=== PATIENT | male | born 1945 | race Caucasian/White ===

== ENCOUNTER 2017-03-07 09:49 | Emergency (ER) | payer OTHER ==
[2017-03-07 10:15] VITALS: BP 110/63
[2017-03-07] MEDS ORDERED: Sodium Chloride 0.9% 10 ML Syringe FLUSH PRN (10:56)
[2017-03-07] MEDS ORDERED: Sodium Chloride 0.9% 1,000 ML IV ONE (10:57)
--- NOTE | 2017-03-07 11:07 | EDM.PDOC ---
ED HPI GENERAL MEDICAL PROBLEM - General Chief Complaint: Fever Stated Complaint: FEVER Time Seen by Provider: 03/07/17 10:50 Source of Information: Reports: Patient History Limitations: Reports: No Limitations - History of Present Illness INITIAL COMMENTS - FREE TEXT/NARRATIVE: Frandy is a 72 year old male with a hx of HTN, CAD, high cholesterol and DM who presents to the ED today with c/o fever, anorexia, body aches and generally not feeling well for the last 3 days. Patient denies any vomiting or diarrhea, he denies any URI symptoms although is only 90-93% on room air on arrival here. Patient denies any known tick bites. He denies any increase in LE swelling, chest pain, or shortness of breath. Patient denies any sore throat. Onset: Gradual Duration: Day(s): (3) Generalized Pain Score (Numeric/FACES): 8 - Related Data Allergies Allergy/AdvReac Type Severity Reaction Status Date / Time Iodinated Contrast- Oral and Allergy Hives Verified 11/22/16 09:29 IV Dye [Iodinated Contrast Media - Oral and] ragweed pollen Allergy Swollen Verified 11/22/16 09:29 Eyes herbs/alternative medicine Allergy Cannot Uncoded 11/22/16 09:14 Remember Past Medical History Cardiovascular History: Reports: CAD Respiratory History: Reports: Sleep Apnea, Other (See Below) Other Respiratory History: cpap and o2 at night. Psychiatric History: Reports: PTSD Endocrine/Metabolic History: Reports: Diabetes, Type II - Past Surgical History Cardiovascular Surgical History: Reports: Coronary Artery Bypass, Coronary Artery Stent Social & Family History - Tobacco Use Smoking Status *Q: Never Smoker - Recreational Drug Use Recreational Drug Use: No ED ROS GENERAL - Review of Systems Review Of Systems: ROS reveals no pertinent complaints other than HPI. ED EXAM, GENERAL - Physical Exam Exam: See Below Exam Limited By: No Limitations General Appearance: Alert, WD/WN, No Apparent Distress Throat/Mouth: Normal Inspection, Normal Oropharynx, No Airway Compromise Head: Atraumatic Neck: Normal Inspection, Supple, Non-Tender Respiratory/Chest: No Respiratory Distress, No Accessory Muscle Use, Chest Non- Tender, Rhonchi (LLL) Cardiovascular: Regular Rate, Rhythm, No Murmur, Other (Mild LE peripheral edema , non-pitting) GI/Abdominal: Normal Bowel Sounds, Soft, Non-Tender Extremities: Normal Inspection, Normal Range of Motion Neurological: Alert, Oriented, CN II-XII Intact Psychiatric: Normal Affect, Normal Mood Skin Exam: Warm, Dry, Intact Lymphatic: No Adenopathy Course - Vital Signs Last Recorded V/S: Last Vital Signs Temp 37.0 C 03/07/17 10:33 Pulse 74 03/07/17 10:33 Resp 18 03/07/17 10:33 BP 110/63 03/07/17 10:33 Pulse Ox 90 L 03/07/17 10:33 Frandy is a 72 year old male with a hx of HTN, diabetes, and high cholesterol who presents to the ED today with c/o body aches, fever, anorexia, and general malaise for 3 days. Please refer to HPI and focused exam. Patient on arrival here has oxygen levels in the low 90's which he states is normal for him. Xray obtained to rule out pneumonia and is negative. PIV established. Patient was given 500 ML's of NS. Blood work obtained and returns with a low white count, low platelet count of 122 and CMP within normal limits. BNP was checked secondary to course lung sounds in LLL and is unremarkable. Given patient's CBC results in light of his symptoms, I feel he likely has anaplasmosis. Tick borne testing is pending. I am going to start patient on Doxycycline for 14 days. I would like him to follow up with PCP in one week, I encouraged him to rest, stay well hydrated and take a probiotic while on the Doxy. Reasons to return to the ED discussed, patient is agreeable and was discharged in stable condition. - Orders/Labs/Meds Orders: Active Orders 24 hr Category Date Time Status Peripheral IV Care [RC] . DIRECTED Care 03/07/17 10:57 Active BABESIA MICROTI IGG AND IGM [REF] Stat Lab 03/07/17 11:33 Received EHRLICHIA CHAFFEENSIS, IGG&IGM [REF] Stat Lab 03/07/17 11:33 Received LYME AB SCREEN RFLX [REF] Stat Lab 03/07/17 11:33 Received Sodium Chloride 0.9% [Normal Saline] 1,000 ml Med 03/07/17 10:57 Active IV .BOLUS Sodium Chloride 0.9% [Saline Flush] Med 03/07/17 10:56 Active 10 ml FLUSH ASDIRECTED PRN Peripheral IV Insertion Adult [OM.PC] Routine Oth 03/07/17 10:56 Ordered Medication Orders Sodium Chloride (Normal Saline) 1,000 mls @ 500 mls/hr IV .BOLUS ONE Stop: 03/07/17 12:56 Last Admin: 03/07/17 11:31 Dose: 500 mls/hr Sodium Chloride (Saline Flush) 10 ml FLUSH ASDIRECTED PRN PRN Reason: Keep Vein Open Last Admin: 03/07/17 11:31 Dose: 10 ml Labs: Laboratory Tests 03/07/17 03/07/17 03/07/17 Range/Units 11:05 11:05 11:05 WBC 2.7 L (4.5-11.0) K/uL RBC 5.24 (4.30-5.90) M/uL Hgb 16.2 H (12.0-15.0) g/dL Hct 47.5 (40.0-54.0) % MCV 91 (80-98) fL MCH 31 (27-31) pg MCHC 34 (32-36) % Plt Count 122 L (150-400) K/uL Neut % (Auto) 71 H (36-66) % Lymph % (Auto) 11 L (24-44) % [place] % (Auto) 17 H (2-6) % Eos % (Auto) 0 L (2-4) % Baso % (Auto) 0 (0-1) % Sodium 140 (140-148) mmol/L Potassium 4.1 (3.6-5.2) mmol/L Chloride 105 (100-108) mmol/L Carbon Dioxide 28 (21-32) mmol/L Anion Gap 7.2 (5.0-14.0) mmol/L BUN 11 (7-18) mg/dL Creatinine 0.8 (0.8-1.3) mg/dL Est Cr Clr Drug Dosing 88.90 mL/min Estimated GFR (MDRD) > 60 (>60) Glucose 128 H (74-106) mg/dL Lactic Acid 1.9 (0.4-2.0) mmol/L Calcium 8.7 (8.5-10.1) mg/dL Total Bilirubin 1.0 (0.2-1.0) mg/dL AST 31 (15-37) U/L ALT 31 (12-78) U/L Alkaline Phosphatase 77 (46-116) U/L [id number] Pept 25 (5-125) pg/mL Total Protein 7.2 (6.4-8.2) g/dL Albumin 3.5 (3.4-5.0) g/dL Globulin 3.7 H (2.3-3.5) g/dL Albumin/Globulin Ratio 1.0 L (1.2-2.2) Meds: Medications Generic Name Dose Route Start Last Admin Trade Name Freq PRN Reason Stop Dose Admin Sodium Chloride 1,000 mls @ 500 mls/hr 03/07/17 10:57 03/07/17 11:31 Normal Saline IV 03/07/17 12:56 500 mls/hr .BOLUS ONE Administration Sodium Chloride 10 ml 03/07/17 10:56 03/07/17 11:31 Saline Flush FLUSH 10 ml ASDIRECTED PRN Administration Keep Vein Open Departure - Departure Time of Disposition: 12:15 Disposition: Home, Self-Care 01 Condition: Good Clinical Impression: Tick-borne fever - Discharge Information Instructions: Fever, Adult, [id number], Ehrlichiosis and Anaplasmosis, Easy- to-Read Forms: ED Department Discharge Additional Instructions: Frandy, Make sure you are drinking plenty of water. Take Doxycycline as prescribed for 14 days. Follow up with primary care in one week Return to the ED with any complications I would strongly recommend a probiotic such as Culturelle (can be found at [facility] over the counter) to prevent diarrhea and upset stomach from the doxycycline. The Doxycycline may also affect your blood sugar, so make sure you are keeping track of your levels. - My Orders Last 24 Hours: My Active Orders 03/07/17 10:56 Sodium Chloride 0.9% [Saline Flush] 10 ml FLUSH ASDIRECTED PRN Peripheral IV Insertion Adult [OM.PC] Routine 03/07/17 10:57 Peripheral IV Care [RC] . DIRECTED Sodium Chloride 0.9% [Normal Saline] 1,000 ml IV .BOLUS 03/07/17 11:33 BABESIA MICROTI IGG AND IGM [REF] Stat EHRLICHIA CHAFFEENSIS, IGG&IGM [REF] Stat LYME AB SCREEN RFLX [REF] Stat - Assessment/Plan Last 24 Hours: My Active Orders 03/07/17 10:56 Sodium Chloride 0.9% [Saline Flush] 10 ml FLUSH ASDIRECTED PRN Peripheral IV Insertion Adult [OM.PC] Routine 03/07/17 10:57 Peripheral IV Care [RC] . DIRECTED Sodium Chloride 0.9% [Normal Saline] 1,000 ml IV .BOLUS 03/07/17 11:33 BABESIA MICROTI IGG AND IGM [REF] Stat EHRLICHIA CHAFFEENSIS, IGG&IGM [REF] Stat LYME AB SCREEN RFLX [REF] Stat
--- NOTE | 2017-03-07 11:28 | CR ---
Chest 2V HISTORY: sob, course lungs COMPARISON: None FINDINGS: Lungs appear normally aerated. No acute infiltrate is identified.. Cardiomediastinal silhouette is w ithin normal limits. Old median sternotomy changes are noted. Atherosclerotic, tortuous thoracic aor ta is noted. No vascular redistribution or pleural fluid can be seen. There are small anterior osteo phytes lower thoracic spine. IMPRESSION: Old median sternotomy changes. Tortuous thoracic aorta. No acute cardiopulmonary disease is identifi ed.
== END 2017-03-07 12:37 | disposition home or self-care (01) ==
LOC: JP.ED 09:49
DX: A93.8 Other specified arthropod-borne viral fevers (principal); I10 Essential (primary) hypertension; I25.10 Atherosclerotic heart disease of native coronary artery without angina pectoris; E78.00 Pure hypercholesterolemia, unspecified; E11.9 Type 2 diabetes mellitus without complications; Z91.041 Radiographic dye allergy status; Z95.1 Presence of aortocoronary bypass graft; Z95.5 Presence of coronary angioplasty implant and graft
CPT/HCPCS: 36415; 71020; 80053; 83605; 83880; 85025; 86618; 86666; 86753; 96360; 96361; 99284; J7040; J7050

== ENCOUNTER 2017-05-01 15:49 | Emergency (ER) | payer MEDICARE, OTHER ==
--- NOTE | 2017-05-01 16:32 | EDM.PDOC ---
ED HPI GENERAL MEDICAL PROBLEM - General Chief Complaint: Trauma Stated Complaint: FELL OFF A LADDER Time Seen by Provider: 05/01/17 15:50 Source of Information: Reports: Patient, EMS History Limitations: Reports: No Limitations - History of Present Illness INITIAL COMMENTS - FREE TEXT/NARRATIVE: 72-year-old male was up on a ladder cleaning out the gutters on his house when the ladder buckled and he fell approximately 10 or 11 feet. He landed hard on his back and bounced over onto his stomach. The ambulance was called and he was told not to move, he did not lose consciousness but he is complaining of some neck discomfort, left posterior shoulder discomfort and back discomfort. He was stable in route. A trauma code was called because of the distance of the fall. He also has a known AAA and has a history of coronary artery disease. Onset: Today Duration: Hour(s): (Within the past half hour) Location: Reports: Head, Neck, Back, Upper Extremity, Left Severity: Moderate Associated Symptoms: Reports: Chest Pain. Denies: Confusion, Cough, Diaphoresis , Fever/Chills, Loss of Appetite, Nausea/Vomiting, Shortness of Breath, Syncope Neck Pain Score (Numeric/FACES): 8 Upper Headache Pain Score (Numeric/FACES): 8 Left Middle Arm Pain Score (Numeric/FACES): 6 Bilateral Hip Pain Score (Numeric/FACES): 6 - Related Data Allergies Allergy/AdvReac Type Severity Reaction Status Date / Time Iodinated Contrast- Oral and Allergy Hives Verified 05/04/17 21:36 IV Dye [Iodinated Contrast Media - Oral and] ragweed pollen Allergy Swollen Verified 05/04/17 21:36 Eyes herbs/alternative medicine Allergy Cannot Uncoded 05/04/17 21:36 Remember Home Meds: Home Meds Aspirin [Adult Low Dose Aspirin EC] 81 mg PO DAILY 05/01/17 [History] Carboxymethylcell/Glycerin/Pf [Refresh Optive Sensitive Drops] 1 drop EYEBOTH ASDIRECTED 05/01/17 [History] Cholecalciferol (Vitamin D3) [Vitamin D3] 10,000 unit PO DAILY 05/01/17 [History ] Cinnamon Bark/Chromium Picolin [Cinnamon Plus Chromium Capsule] 1 tab PO DAILY 05/01/17 [History] Cod Liver Oil 1 each PO DAILY 05/01/17 [History] FLUoxetine [PROzac] 20 mg PO DAILY 05/01/17 [History] Garlic 1,000 mg PO DAILY 05/01/17 [History] Gemfibrozil 600 mg PO BID 05/01/17 [History] Ketotifen [Ketotifen 0.025% Ophth Soln] 1 drop EYEBOTH BID 05/01/17 [History] Metoprolol Tartrate [Lopressor] 25 mg PO DAILY 05/01/17 [History] Prasterone (DHEA) [Dhea] 50 mg PO DAILY 05/01/17 [History] atorvaSTATin [Lipitor] 20 mg PO DAILY 05/01/17 [History] glipiZIDE [Glucotrol] 10 mg PO BID 05/01/17 [History] metFORMIN [Glucophage] 1,000 mg PO BID 05/01/17 [History] sitaGLIPtin Phos/Metformin HCl [Janumet 50-1,000 MG] 500 mg PO BID 05/01/17 [ History] Past Medical History Cardiovascular History: Reports: Aneurysm, CAD Respiratory History: Reports: Sleep Apnea, Other (See Below) Other Respiratory History: cpap and o2 at night. Psychiatric History: Reports: PTSD Endocrine/Metabolic History: Reports: Diabetes, Type II - Past Surgical History Cardiovascular Surgical History: Reports: Coronary Artery Bypass, Coronary Artery Stent Social & Family History - Tobacco Use Smoking Status *Q: Former Smoker Used Tobacco, but Quit: Yes Month Tobacco Last Used: 0 - Recreational Drug Use Recreational Drug Use: No Review of Systems - Review of Systems Review Of Systems: See Below Constitutional: Denies: Fever, Weakness Eyes: Reports: No Symptoms Nose: Reports: Previous Injury Respiratory: Denies: Shortness of Breath, Pleuritic Chest Pain Cardiovascular: Reports: Chest Pain (Some pain in his chest radiating from the back, no palpitations) GI/Abdominal: Denies: Abdominal Pain Genitourinary: Reports: No Symptoms Musculoskeletal: Reports: Neck Pain (Especially on the left side), Shoulder Pain , Back Pain (Upper back) Skin: Denies: Bruising Neurological: Reports: Headache (Some mild headache on the right side) Psychiatric: Reports: No Symptoms ED EXAM, GENERAL - Physical Exam Exam: See Below Free Text/Narrative:: Initial primary survey showed a very stable male, normal blood pressure and pulse with normal oxygen saturations, GCS of 15 and normal respiratory rate. Lungs were clear. Exam Limited By: No Limitations General Appearance: Alert, No Apparent Distress Eye Exam: Bilateral Eye: EOMI Throat/Mouth: Normal Inspection Head: Atraumatic Neck: Other (collar was removed after the CT scan. He had some mild paracervical tenderness to palpation. No focal bony tenderness.) Respiratory/Chest: No Respiratory Distress, Lungs Clear Cardiovascular: Regular Rate, Rhythm GI/Abdominal: Soft, Tender (Responded with some tenderness to the right side of the abdomen when palpated. Very obese. Bowel sounds were active.) Back Exam: Other (Patient was log rolled in the back appeared normal without abrasions, contusions or deformities. No focal percussion tenderness of the spine) Extremities: Other (A very small superficial abrasion on the right elbow, some tenderness to the posterior left shoulder.) Neurological: Alert, Oriented, No Motor/Sensory Deficits Psychiatric: Normal Affect, Normal Mood Skin Exam: Warm, Dry Course - Vital Signs Last Recorded V/S: Last Vital Signs Temp 98.0 F 05/01/17 16:28 Pulse 68 05/01/17 17:06 Resp 20 05/01/17 17:06 BP 108/59 L 05/01/17 17:06 Pulse Ox 92 L 05/01/17 17:06 - Orders/Labs/Meds Labs: Laboratory Tests 05/01/17 05/01/17 05/01/17 Range/Units 16:04 16:04 16:04 WBC 3.5 L (4.5-11.0) K/uL RBC 5.52 (4.30-5.90) M/uL Hgb 17.2 H (12.0-15.0) g/dL Hct 49.8 (40.0-54.0) % MCV 90 (80-98) fL MCH 31 (27-31) pg MCHC 35 (32-36) % Plt Count 132 L (150-400) K/uL Neut % (Auto) 59 (36-66) % Lymph % (Auto) 26 (24-44) % [place] % (Auto) 14 H (2-6) % Eos % (Auto) 1 L (2-4) % Baso % (Auto) 1 (0-1) % Puncture Site Rt brachial ABG pH 7.446 (7.350-7.450) ABG pCO2 30.5 L (35.0-42.0) mmHg ABG pO2 69.5 L (75.0-100.0) mmHg ABG HCO3 20.7 L (22.0-26.0) mmol/L ABG Total CO2 17.1 L (23.0-27.0) mmol/L ABG O2 Saturation 95.2 (95.0-98.0) % ABG O2 Content 22.4 (15.0-23.0) %vol ABG Base Excess -1.6 mm/L ABG Hemoglobin 17.5 (13.5-18.0) g/dL ABG Oxyhemoglobin 91.5 % ABG Carboxyhemoglobin 3.3 H (0.0-1.6) % ABG Methemoglobin 0.6 % Jean Test Passed O2 Delivery Device Room air Sodium 140 (140-148) mmol/L Potassium 4.1 (3.6-5.2) mmol/L Chloride 106 (100-108) mmol/L Carbon Dioxide 23 (21-32) mmol/L Anion Gap 10.9 (5.0-14.0) mmol/L BUN 15 (7-18) mg/dL Creatinine 0.8 (0.8-1.3) mg/dL Est Cr Clr Drug Dosing 88.90 mL/min Estimated GFR (MDRD) > 60 (>60) Glucose 168 H (74-106) mg/dL Calcium 9.1 (8.5-10.1) mg/dL Total Bilirubin 0.9 (0.2-1.0) mg/dL AST 66 H D (15-37) U/L ALT 54 (12-78) U/L Alkaline Phosphatase 89 (46-116) U/L Total Protein 7.2 (6.4-8.2) g/dL Albumin 3.7 (3.4-5.0) g/dL Globulin 3.5 (2.3-3.5) g/dL Albumin/Globulin Ratio 1.1 L (1.2-2.2) Meds: Medications Discontinued Medications Generic Name Dose Route Start Last Admin Trade Name Freq PRN Reason Stop Dose Admin Hydromorphone HCl 0.5 mg 05/01/17 17:57 05/01/17 18:01 Dilaudid IVPUSH 05/01/17 17:58 0.5 mg ONETIME ONE Administration Ketorolac Tromethamine 30 mg 05/01/17 17:36 05/01/17 17:41 Toradol IVPUSH 05/01/17 17:37 30 mg ONETIME ONE Administration - Re-Assessments/Exams Free Text/Narrative Re-Assessment/Exam: 05/01/17 17:25 CBC, CMP, ABGs were obtained. Plan was to CT the chest abdomen and pelvis with IV contrast. He had an IV dye allergy so the head, cervical spine, chest abdomen and pelvis were done without contrast. No medication was needed. Patient continued to be stable. 05/01/17 17:38 White count was 3500, hemoglobin 17.2. Labs were reasonably normal. CTs of the head, neck, abdomen and pelvis all returned without any obvious acute traumatic changes. Patient was given 30 mg of Toradol IV and was discharged in good condition. He will continue with a regular dose of Aleve, ice sore spots and increase activity as tolerated returning if he develops any concerns. 05/01/17 18:05 When the patient tried to leave he had significant discomfort so was given 0.5 mg of Dilaudid IV. He was also given 20 oxycodone to take orally along with the Aleve for extra pain control through the weekend. Departure - Departure Time of Disposition: 18:43 Disposition: Home, Self-Care 01 Condition: Good Clinical Impression: Contusion of back wall of thorax Qualifiers: Encounter type: initial encounter Laterality: left Qualified Code(s): S20.222A - Contusion of left back wall of thorax, initial encounter Contusion of left chest wall Qualifiers: Encounter type: initial encounter Qualified Code(s): S20.212A - Contusion of left front wall of thorax, initial encounter - Discharge Information Instructions: Chest Contusion, [id number] Referrals: PCP,None [Primary Care Provider] - Forms: ED Department Discharge Care Plan Goals: Ice to sore areas for the next 48 hours may help. Aleve twice daily would also be beneficial, increase activity as tolerated. Oxycodone for significant pain not responding to Aleve, take as directed. Return any time if you develop concerns, or consider rechecking next week if not improving satisfactorily.
[2017-05-01 17:15] VITALS: BP 108/59
[2017-05-01] MEDS ORDERED: Ketorolac 30 MG/ML SDV IVPUSH ONE (17:36)
[2017-05-01] MEDS ORDERED: HYDROmorphone 0.5 MG/0.5 ML Syringe IVPUSH ONE (17:57)
== END 2017-05-01 18:43 | disposition home or self-care (01) ==
LOC: JP.ED 15:49
DX: S20.222A Contusion of left back wall of thorax, initial encounter (principal); S20.212A Contusion of left front wall of thorax, initial encounter; I25.10 Atherosclerotic heart disease of native coronary artery without angina pectoris; E11.9 Type 2 diabetes mellitus without complications; Z87.891 Personal history of nicotine dependence; Z91.040 Latex allergy status; W19.XXXA Unspecified fall, initial encounter
CPT/HCPCS: 36600; 70450; 71250; 72125; 74176; 80053; 82803; 85025; 96374; 96375; 99284; J1170; J1885

== ENCOUNTER 2017-05-04 21:14 | Emergency (ER) | payer MEDICARE, OTHER ==
--- NOTE | 2017-05-04 22:19 | EDM.PDOC ---
ED HPI GENERAL MEDICAL PROBLEM - General Chief Complaint: General Stated Complaint: PAIN Time Seen by Provider: 05/04/17 22:00 Source of Information: Reports: Patient History Limitations: Reports: No Limitations - History of Present Illness INITIAL COMMENTS - FREE TEXT/NARRATIVE: Frandy presents to the emergency room with complaints of poorly controlled abdominal pain status post fall from ladder on 05/01/17. Onset Date: 05/01/17 Duration: Day(s): Quality: Reports: Ache, Dull, Pressure Severity: Severe Improves with: Reports: Medication, Other (He reports taking prescribed oxycodone/APAP#20 tablets plus two of oxycodone 10mg tablets he had at home since 05/01/17.) Worsens with: Reports: Movement Associated Symptoms: Denies: Cough, Fever/Chills, Nausea/Vomiting, Shortness of Breath, Weakness lower abdomen Pain Score (Numeric/FACES): 7 groin/hip area Pain Score (Numeric/FACES): 7 - Related Data Allergies Allergy/AdvReac Type Severity Reaction Status Date / Time Iodinated Contrast- Oral and Allergy Hives Verified 05/04/17 21:36 IV Dye [Iodinated Contrast Media - Oral and] ragweed pollen Allergy Swollen Verified 05/04/17 21:36 Eyes herbs/alternative medicine Allergy Cannot Uncoded 05/04/17 21:36 Remember Home Meds: Home Meds Aspirin [Adult Low Dose Aspirin EC] 81 mg PO DAILY 05/01/17 [History] Carboxymethylcell/Glycerin/Pf [Refresh Optive Sensitive Drops] 1 drop EYEBOTH ASDIRECTED 05/01/17 [History] Cholecalciferol (Vitamin D3) [Vitamin D3] 10,000 unit PO DAILY 05/01/17 [History ] Cinnamon Bark/Chromium Picolin [Cinnamon Plus Chromium Capsule] 1 tab PO DAILY 05/01/17 [History] Cod Liver Oil 1 each PO DAILY 05/01/17 [History] FLUoxetine [PROzac] 20 mg PO DAILY 05/01/17 [History] Garlic 1,000 mg PO DAILY 05/01/17 [History] Gemfibrozil 600 mg PO BID 05/01/17 [History] Ketotifen [Ketotifen 0.025% Ophth Soln] 1 drop EYEBOTH BID 05/01/17 [History] Metoprolol Tartrate [Lopressor] 25 mg PO DAILY 05/01/17 [History] Prasterone (DHEA) [Dhea] 50 mg PO DAILY 05/01/17 [History] atorvaSTATin [Lipitor] 20 mg PO DAILY 05/01/17 [History] glipiZIDE [Glucotrol] 10 mg PO BID 05/01/17 [History] metFORMIN [Glucophage] 1,000 mg PO BID 05/01/17 [History] sitaGLIPtin Phos/Metformin HCl [Janumet 50-1,000 MG] 500 mg PO BID 05/01/17 [ History] Past Medical History HEENT History: Reports: Hard of Hearing, Impaired Vision Cardiovascular History: Reports: Aneurysm, CAD Respiratory History: Reports: Sleep Apnea, Other (See Below) Other Respiratory History: cpap and o2 at night. Musculoskeletal History: Reports: Arthritis Psychiatric History: Reports: PTSD Endocrine/Metabolic History: Reports: Diabetes, Type II, Obesity/BMI 30+ Dermatologic History: Reports: Venous Stasis Dermatitis - Past Surgical History HEENT Surgical History: Reports: Cataract Surgery Cardiovascular Surgical History: Reports: Coronary Artery Bypass, Coronary Artery Stent Neurological Surgical History: Reports: Other (See Below) Other Neurological Surgeries/Procedures: "put something to harden a disc in my back" Social & Family History - Tobacco Use Smoking Status *Q: Never Smoker Used Tobacco, but Quit: Yes Month Tobacco Last Used: 0 - Caffeine Use Caffeine Use: Reports: Coffee, Soda - Recreational Drug Use Recreational Drug Use: No ED ROS GENERAL - Review of Systems Review Of Systems: See Below Constitutional: Denies: Fever, Chills, Malaise, Weakness, Fatigue HEENT: Reports: No Symptoms Respiratory: Denies: Shortness of Breath, Wheezing, Cough, Sputum Cardiovascular: Reports: Other (He reports history of sleep apnea and use of oxygen a night. He reports he did feel SOB earlier and put his oxygen on. ). Denies: Chest Pain, Dyspnea on Exertion, Edema, Lightheadedness, Palpitations, PND, Syncope Endocrine: Reports: No Symptoms GI/Abdominal: Reports: Abdominal Pain, Constipation. Denies: Black Stool, Bloody Stool, Distension, Nausea, Vomiting : Reports: No Symptoms Musculoskeletal: Reports: Back Pain Skin: Reports: No Symptoms Neurological: Denies: Headache, Numbness, Syncope, Tingling, Difficulty Walking , Weakness, Gait Disturbance Psychiatric: Reports: No Symptoms Hematologic/Lymphatic: Reports: No Symptoms Immunologic: Reports: No Symptoms ED EXAM, GENERAL - Physical Exam Exam: See Below Free Text/Narrative:: Frandy is an alert, oriented and pleasant 72 year old male presenting tonight with complaints of uncontrolled pain to his abdomen and pelvis status post fall from ladder 10 to 12 feet on 05/01/17. Exam, CT and lab work at that time were negative for acute injury. Exam Limited By: No Limitations General Appearance: Alert, WD/WN, Mild Distress Eye Exam: Bilateral Eye: Normal Inspection, PERRL, Other (Pupils mm, equal) Ears: Normal External Exam, Normal Canal, Hearing Grossly Normal, Normal TMs Ear Exam: Bilateral Ear: Auricle Normal, Canal Normal, TM normal Nose: Normal Inspection, Normal Mucosa, No Blood Throat/Mouth: Normal Inspection, Normal Lips, Normal Oropharynx, Normal Voice, No Airway Compromise Head: Atraumatic, Normocephalic Neck: Normal Inspection, Supple, Non-Tender, Full Range of Motion. No: Lymphadenopathy (R) Respiratory/Chest: No Accessory Muscle Use, Chest Non-Tender, Other (Lung sound clear, decreased at that bases. ) Cardiovascular: Normal Peripheral Pulses, Regular Rate, Rhythm, No Edema, No Murmur, No Rub Peripheral Pulses: 2+: Brachial (L), Brachial (R), Dorsalis Pedis (L), Dorsalis Pedis (R) GI/Abdominal: Normal Bowel Sounds, Soft, Other (large, obese abdomen, tenderness noted with palpation to RLQ and LLQ. Last BM Friday - 2 days ago. Umbilical hernia noted, patient denies changes to hernia. ) Back Exam: Normal Inspection, Full Range of Motion, CVA Tenderness (L). No: CVA Tenderness (R) Extremities: Normal Range of Motion, Non-Tender, Normal Capillary Refill, Other (2+ edema extremities without pitting. ) Neurological: Alert, Oriented, CN II-XII Intact, Normal Cognition, No Motor/ Sensory Deficits Psychiatric: Normal Affect, Normal Mood Skin Exam: Warm, Dry, Intact, Normal Color, No Rash Lymphatic: No Adenopathy Course - Vital Signs Last Recorded V/S: Last Vital Signs Temp 37.4 C 05/04/17 22:51 Pulse 79 05/04/17 22:51 Resp 22 H 05/04/17 22:51 BP 157/79 H 05/04/17 22:51 Pulse Ox 89 L 05/04/17 22:51 - Orders/Labs/Meds Orders: Active Orders 24 hr Category Date Time Status Abdomen Pelvis wo Cont [CT] Stat Exams 05/04/17 22:15 Taken Labs: Laboratory Tests 05/04/17 05/04/17 05/04/17 Range/Units 22:24 22:24 22:29 WBC 3.6 L (4.5-11.0) K/uL RBC 5.11 (4.30-5.90) M/uL Hgb 16.0 H (12.0-15.0) g/dL Hct 46.0 (40.0-54.0) % MCV 90 (80-98) fL MCH 31 (27-31) pg MCHC 35 (32-36) % Plt Count 136 L (150-400) K/uL Neut % (Auto) 66 (36-66) % Lymph % (Auto) 13 L (24-44) % [place] % (Auto) 19 H (2-6) % Eos % (Auto) 2 (2-4) % Baso % (Auto) 0 (0-1) % Sodium 139 L (140-148) mmol/L Potassium 4.2 (3.6-5.2) mmol/L Chloride 104 (100-108) mmol/L Carbon Dioxide 27 (21-32) mmol/L Anion Gap 12.2 (5.0-14.0) mmol/L BUN 15 (7-18) mg/dL Creatinine 0.8 (0.8-1.3) mg/dL Est Cr Clr Drug Dosing TNP Estimated GFR (MDRD) > 60 (>60) Glucose 146 H (74-106) mg/dL Calcium 9.0 (8.5-10.1) mg/dL Urine Color Yellow Urine Appearance Clear Urine pH 5.0 (4.5-8.0) Ur Specific [place] 1.020 (1.008-1.030) Urine Protein Negative (NEGATIVE) mg/dL Urine Glucose (UA) >1000 H (NEGATIVE) mg/dL Urine Ketones Negative (NEGATIVE) mg/dL Urine Occult Blood Negative (NEGATIVE) Urine Nitrite Negative (NEGAITVE) Urine Bilirubin Negative (NEGATIVE) Urine Urobilinogen Normal (NORMAL) mg/dL Ur Leukocyte Esterase Negative (NEGATIVE) Urine RBC 0-5 (0-5) Urine WBC 0-5 (0-5) Ur Epithelial Cells Rare Amorphous Sediment Not seen Urine Bacteria Rare Urine Mucus Not seen Labwork reviewed. Meds: Medications Discontinued Medications Generic Name Dose Route Start Last Admin Trade Name Berto PRN Reason Stop Dose Admin Magnesium Citrate 296 ml 05/04/17 23:40 05/04/17 23:53 Citrate Of Magnesia PO 05/04/17 23:41 296 ml ONETIME ONE Administration [place] [employer] reviewed, no other fills for opiates except oxycodone filled on . - Radiology Interpretation CT Results Date: 05/04/17 (Abdomen/pelvis CT without contrast Impression: NO free fluid, no evidence of solid organ injury. There is fatty infiltration of liver, likely portal hypertension with a recannulized umbilical vein. Infrarenal abdominal aortic aneurysm measuring up to 4.7cm with no change from previous CT. ) - Re-Assessments/Exams Free Text/Narrative Re-Assessment/Exam: 05/04/17 23:42 Constipation, opiate medication use. Discussed lab work and CT with Dr. Myers, she is in agreement with plan. Discussed lab work and CT with Frandy and his daughter, they are in agreement with plan. Departure - Departure Time of Disposition: 23:46 Disposition: Home, Self-Care 01 Condition: Fair Clinical Impression: Constipation, Abdominal pain Contusion of back wall of thorax Qualifiers: Encounter type: initial encounter Laterality: left Qualified Code(s): S20.222A - Contusion of left back wall of thorax, initial encounter Contusion of left chest wall Qualifiers: Encounter type: initial encounter Qualified Code(s): S20.212A - Contusion of left front wall of thorax, initial encounter - Discharge Information Instructions: Constipation, Adult Referrals: Sky Mcdowell Sr, MD [Primary Care Provider] - Forms: ED Department Discharge Additional Instructions: You are suffering from constipation. Drink plenty of water to keep yourself hydrated. The CT completed today did not show any acute changes from CT completed 05/01/17 Frequent use of prescribed oxycodone since 05/01/17 due to fall from ladder can cause constipation and possible ileus. Magnesium citrate administered. Take docusate sodium 100mg by mouth twice per day while using pain medication. You are provided oxycodone 5mg tablets, take 1 to 2 tablets three times a day as needed for pain. Instymed for #10 tablets provided[address] Report to Dr. Mcdowell's clinic tomorrow for follow up and additional pain management. Return to the emergency room for worsening, issues or concerns. - My Orders Last 24 Hours: My Active Orders 05/04/17 22:15 Abdomen Pelvis wo Cont [CT] Stat - Assessment/Plan Last 24 Hours: My Active Orders 05/04/17 22:15 Abdomen Pelvis wo Cont [CT] Stat Assessment:: Abdominal pain Constipation Contusion of back wall of thorax Contusion of left chest wall Plan: You are suffering from constipation. The CT completed today did not show any acute changes from CT completed 05/01/17 Frequent use of prescribed oxycodone since 05/01/17 due to fall from ladder can cause constipation and possible ileus. No use of stool softner Magnesium citrate administered. Take docusate sodium 100mg by mouth twice per day while using pain medication. You are provided oxycodone 5mg tablets, take 1 to 2 tablets three times a day as needed for pain. Instymed for #[address] tablets provided. Report to Dr. Mcdowell's clinic tomorrow for follow up and additional pain management. Return to the emergency room for worsening, issues or concerns.
[2017-05-04 22:52] VITALS: BP 157/79
[2017-05-04] MEDS ORDERED: Magnesium Citrate Solution 296 ML Bottle PO ONE (23:40)
== END 2017-05-05 00:03 | disposition home or self-care (01) ==
LOC: JP.ED 21:14
DX: S20.222A Contusion of left back wall of thorax, initial encounter (principal); S20.212A Contusion of left front wall of thorax, initial encounter; K59.00 Constipation, unspecified; I25.10 Atherosclerotic heart disease of native coronary artery without angina pectoris; G47.30 Sleep apnea, unspecified; M19.90 Unspecified osteoarthritis, unspecified site; E11.9 Type 2 diabetes mellitus without complications; E66.9 Obesity, unspecified; Z95.1 Presence of aortocoronary bypass graft; Z95.5 Presence of coronary angioplasty implant and graft; Z87.891 Personal history of nicotine dependence; Z79.82 Long term (current) use of aspirin; Z79.84 Long term (current) use of oral hypoglycemic drugs; Z79.899 Other long term (current) drug therapy; Z91.048 Other nonmedicinal substance allergy status; Z91.041 Radiographic dye allergy status; W11.XXXA Fall on and from ladder, initial encounter
CPT/HCPCS: 36415; 74176; 80048; 81001; 85025; 99284; A9270; 99283

== ENCOUNTER 2019-03-26 17:12 | Emergency (ER) | payer MEDICARE, OTHER ==
[2019-03-26 17:41] VITALS: BP 127/65
--- NOTE | 2019-03-26 18:04 | EDM.PDOC ---
ED HPI GENERAL MEDICAL PROBLEM - General Chief Complaint: Eye Problems Stated Complaint: RETINA Time Seen by Provider: 03/26/19 17:23 Source of Information: Reports: Patient, RN Notes Reviewed History Limitations: Reports: No Limitations - History of Present Illness INITIAL COMMENTS - FREE TEXT/NARRATIVE: 74-year-old gentleman presents emergency department today with flashing lights in his right eye is been going on for about 24 hours he was scheduled to see the regional truck driver today but left sooner without being evaluated describes no loss of vision. - Related Data Allergies Allergy/AdvReac Type Severity Reaction Status Date / Time Iodinated Contrast Media Allergy Hives Verified 03/26/19 17:27 [Iodinated Contrast Media - Oral and] ragweed pollen Allergy Swollen Verified 03/26/19 17:27 Eyes herbs/alternative medicine Allergy Cannot Uncoded 03/26/19 17:27 Remember Home Meds: Home Meds Carboxymethylcell/Glycerin/Pf [Refresh Optive Sensitive Drops] 1 drop EYEBOTH ASDIRECTED 05/01/17 [History] Cholecalciferol (Vitamin D3) [Vitamin D3] 10,000 unit PO DAILY 05/01/17 [History ] Cinnamon Bark/Chromium Picolin [Cinnamon Plus Chromium Capsule] 1 tab PO DAILY 05/01/17 [History] FLUoxetine [PROzac] 30 mg PO DAILY 05/01/17 [History] Garlic 1,000 mg PO BID 05/01/17 [History] Gemfibrozil 600 mg PO BID 05/01/17 [History] Ketotifen [Ketotifen 0.025% Ophth Soln] 1 drop EYEBOTH BID 05/01/17 [History] Metoprolol Tartrate [Lopressor] 25 mg PO BID 05/01/17 [History] Prasterone (DHEA) [Dhea] 50 mg PO DAILY 05/01/17 [History] glipiZIDE [Glucotrol] 10 mg PO BID 05/01/17 [History] Aspirin [Adult Aspirin] 1 tab PO DAILY 04/15/18 [History] Cyanocobalamin (Vitamin B12) [Vitamin B12] 1 tab PO DAILY 04/15/18 [History] Lubiprostone [Amitiza] 1 cap PO DAILY 04/15/18 [History] Milk Thistle 1 tab PO BID 04/15/18 [History] [place]-3/DHA/Epa/Fish Oil [[place] 3 500 Softgel] 1 cap PO DAILY 04/15/18 [History] metFORMIN HCl [Metformin HCl ER] 1,000 mg PO DAILY 03/26/19 [History] Past Medical History HEENT History: Reports: Hard of Hearing, Impaired Vision Other HEENT History: dentures Cardiovascular History: Reports: Aneurysm, CAD Respiratory History: Reports: Sleep Apnea, Other (See Below) Other Respiratory History: cpap and o2 at night. Musculoskeletal History: Reports: Arthritis Psychiatric History: Reports: PTSD Endocrine/Metabolic History: Reports: Diabetes, Type II, Obesity/BMI 30+ Dermatologic History: Reports: Venous Stasis Dermatitis - Infectious Disease History Infectious Disease History: Reports: Chicken Pox - Past Surgical History HEENT Surgical History: Reports: Cataract Surgery Cardiovascular Surgical History: Reports: Coronary Artery Bypass, Coronary Artery Stent Neurological Surgical History: Reports: Other (See Below) Other Neurological Surgeries/Procedures: "put something to harden a disc in my back" Social & Family History - Family History Family Medical History: Noncontributory Neurological: Reports: Alzheimers Disease - Tobacco Use Smoking Status *Q: Never Smoker - Caffeine Use Caffeine Use: Reports: None - Recreational Drug Use Recreational Drug Use: No ED ROS GENERAL - Review of Systems Review Of Systems: See Below HEENT: Reports: Other (Flashing lights in the right eye). Denies: Vision Change ED EXAM GENERAL W FULL EYE - Physical Exam Exam: See Below Exam Limited By: No Limitations General Appearance: Alert, WD/WN, No Apparent Distress Eye Exam: Bilateral Eye: EOMI, Normal Fundi, PERRL Visual Acuity (R) 20/: 25 Visual Acuity (L) 20/: 25 With Correction: Yes Eyelids: Bilateral: Normal Appearance Conjunctiva & Sclera: Bilateral: Normal Appearance Cornea Exam: Bilateral: Normal Appearance Extraocular Movements: Bilateral: Intact Pupils: Normal Accommodation Pupillary Size: Bilateral: 3 mm Pupillary Reaction: Bilateral: Brisk Anterior Chamber: Bilateral: Normal Appearance Posterior Chamber: Bilateral: Normal Funduscopic Course - Vital Signs Last Recorded V/S: Last Vital Signs Temp 97.9 F 03/26/19 17:36 Pulse 77 03/26/19 17:36 Resp 20 03/26/19 17:36 BP 127/65 03/26/19 17:36 Pulse Ox 92 L 03/26/19 17:36 Departure - Departure Time of Disposition: 18:02 Disposition: Home, Self-Care 01 Condition: Fair Clinical Impression: Scintillating scotoma of right eye - Discharge Information Referrals: Traci Da Silva MD [Primary Care Provider] - Additional Instructions: Please report to [place] walk-in clinic for an appointment with ophthalmology Dr. Chávez at 10 AM tomorrow morning, any loss in vision please report to the emergency department sooner - Assessment/Plan Plan: Assessment Acuity = acute Site and laterality = concern for retinal detachment Etiology = unknown etiology Manifestations = none Location of injury = Home Lab values = none Plan Called discussed case with Dr. Chávez ophthalmology Darek kindly agreed to evaluate the patient he has an appointment tomorrow morning at 10 AM will report sooner if any loss in vision This note was dictated using [employer] voice recognition software please call with any questions on syntax or grammar.
== END 2019-03-26 18:09 | disposition home or self-care (01) ==
LOC: JP.ED 17:12
DX: H53.121 Transient visual loss, right eye (principal); E11.9 Type 2 diabetes mellitus without complications; I25.10 Atherosclerotic heart disease of native coronary artery without angina pectoris; Z91.041 Radiographic dye allergy status; Z91.048 Other nonmedicinal substance allergy status; Z79.899 Other long term (current) drug therapy; Z79.82 Long term (current) use of aspirin; Z79.84 Long term (current) use of oral hypoglycemic drugs
CPT/HCPCS: 99282

== ENCOUNTER 2020-08-12 12:23 | Emergency (ER) | payer OTHER, MEDICARE ==
[2020-08-12 12:41] VITALS: BP 130/65; PULSE 77
[2020-08-12] MEDS ORDERED: Lidocaine 1% with EPINEPHrine 1:100,000 50 ML MDV SUBCUT STA (12:52)
[2020-08-12] MEDS ORDERED: Bacitracin Oint 1 GM U/D Packet TOP ONE (12:52)
--- NOTE | 2020-08-12 12:56 | EDM.PDOC ---
ED HPI GENERAL MEDICAL PROBLEM - General Chief Complaint: Laceration Stated Complaint: INJURED R HAND Time Seen by Provider: 08/12/20 12:49 Source of Information: Reports: Patient, RN Notes Reviewed History Limitations: Reports: No Limitations - History of Present Illness INITIAL COMMENTS - FREE TEXT/NARRATIVE: 75-year-old gentleman presents emergency department today with a laceration palmar surface. Hand he injured himself while peeling and avocado he states inadvertently stabbed himself with a paring knife no functional complaints bleeding is controlled Right Hand Pain Score (Numeric/FACES): 4 - Related Data Allergies Allergy/AdvReac Type Severity Reaction Status Date / Time Iodinated Contrast Media Allergy Hives Verified 08/12/20 12:43 [Iodinated Contrast Media - Oral and] ragweed pollen Allergy Swollen Verified 08/12/20 12:43 Eyes Home Meds: Home Meds Carboxymethylcell/Glycerin/Pf [Refresh Optive Sensitive Drops] 1 drop EYEBOTH ASDIRECTED 05/01/17 [History] Cholecalciferol (Vitamin D3) [Vitamin D3] 10,000 unit PO DAILY 05/01/17 [H istory] Cinnamon Bark/Chromium Picolin [Cinnamon Plus Chromium Capsule] 1 tab PO DAILY 05/01/17 [History] FLUoxetine [PROzac] 30 mg PO DAILY 05/01/17 [History] Garlic 1,000 mg PO BID 05/01/17 [History] Gemfibrozil 600 mg PO BID 05/01/17 [History] Ketotifen [Ketotifen 0.025% Ophth Soln] 1 drop EYEBOTH BID 05/01/17 [History] Metoprolol Tartrate [Lopressor] 12.5 mg PO BID 05/01/17 [History] Prasterone (DHEA) [Dhea] 50 mg PO DAILY 05/01/17 [History] glipiZIDE [Glucotrol] 10 mg PO BID 05/01/17 [History] Aspirin [Adult Aspirin] 1 tab PO DAILY 04/15/18 [History] Cyanocobalamin (Vitamin B12) [Vitamin B12] 1 tab PO DAILY 04/15/18 [History] Lubiprostone [Amitiza] 1 cap PO DAILY 04/15/18 [History] Milk Thistle 1 tab PO BID 04/15/18 [History] [place]-3/DHA/Epa/Fish Oil [[place] 3 500 Softgel] 1 cap PO DAILY 04/15/18 [History] metFORMIN HCl [Metformin HCl ER] 1,000 mg PO DAILY 03/26/19 [History] atorvaSTATin [Lipitor] 10 mg PO BEDTIME 08/12/20 [History] Past Medical History HEENT History: Reports: Hard of Hearing, Impaired Vision Other HEENT History: dentures Cardiovascular History: Reports: Aneurysm, CAD Respiratory History: Reports: Sleep Apnea, Other (See Below) Other Respiratory History: cpap and o2 at night. Musculoskeletal History: Reports: Arthritis Psychiatric History: Reports: PTSD Endocrine/Metabolic History: Reports: Diabetes, Type II, Obesity/BMI 30+ Dermatologic History: Reports: Venous Stasis Dermatitis - Infectious Disease History Infectious Disease History: Reports: Chicken Pox - Past Surgical History HEENT Surgical History: Reports: Cataract Surgery Cardiovascular Surgical History: Reports: Coronary Artery Bypass, Coronary Liv ry Stent Respiratory Surgical History: Reports: None Neurological Surgical History: Reports: Other (See Below) Other Neurological Surgeries/Procedures: "put something to harden a disc in my back" Musculoskeletal Surgical History: Reports: None Social & Family History - Family History Family Medical History: No Pertinent Family History Neurological: Reports: Alzheimers Disease - Tobacco Use Tobacco Use Status *Q: Former Tobacco User Used Tobacco, but Quit: Yes Month/Year Tobacco Last Used: 40 years ago - Caffeine Use Caffeine Use: Reports: None - Recreational Drug Use Recreational Drug Use: No ED ROS GENERAL - Review of Systems Review Of Systems: See Below Constitutional: Reports: No Symptoms Skin: Reports: Wound Neurological: Reports: No Symptoms ED EXAM, SKIN/RASH Exam: See Below Text/Narrative:: Examination of the right hand he has full range of motion of all digits radial pulses +2 there is a 1 cm laceration palmar surface in between digits 3 and 4 Exam Limited By: No Limitations General Appearance: Alert, WD/WN, No Apparent Distress ED SKIN PROCEDURES - Laceration/Wound Repair Right Hand Appearance: Subcutaneous, Linear Distal NVT: Neuro & Vascular Intact, No Tendon Injury Anesthetic Type: Local Local Anesthesia - Lidocaine (Xylocaine): 1% with EPI Local Anesthetic Volume: 1cc Skin Prep: Saline Saline Irrigation (cc's): 60 Exploration/Debridement/Repair: Wound Explored, In a Bloodless Field, Explored to Base Closed with: Sutures Lac/Wound length In cm: 1 Suture Size: 4-0 # of Sutures: 1 Suture Type: Prolene Sterile Dressing Applied: Nurse Tetanus Status Addressed: Yes (2019) Complications: No Course - Vital Signs Last Recorded V/S: Last Vital Signs Temp 98 F 08/12/20 12:41 Pulse 77 08/12/20 12:41 Resp 18 08/12/20 12:41 BP 130/65 08/12/20 12:41 Pulse Ox 90 L 08/12/20 12:41 - Orders/Labs/Meds Meds: Medications Discontinued Medications Generic Name Dose Route Start Last Admin Trade Name Berto PRN Reason Stop Dose Admin Bacitracin 1 dose 08/12/20 12:52 08/12/20 12:57 Bacitracin Oint 1 Gm TOP 08/12/20 12:53 1 dose ONETIME ONE Administration Lidocaine/Epinephrine 20 ml 08/12/20 12:52 08/12/20 12:58 Xylocaine 1% With Epinephrine 1:100,000 SUBCUT 08/12/20 12:53 20 ml NOW STA Administration Departure - Departure Time of Disposition: 13:08 Disposition: Home, Self-Care 01 Condition: Fair Clinical Impression: Laceration of right hand Qualifiers: Encounter type: initial encounter Foreign body presence: without foreign body Qualified Code(s): S61.411A - Laceration without foreign body of right hand, initial encounter - Discharge Information Instructions: Wound Care, Adult Referrals: Traci Da Silva MD [Primary Care Provider] - Forms: ED Department Discharge Additional Instructions: Suture removal in 10 days, return to the emergency department or follow-up with primary care for suture removal follow wound care instruction sheet Sepsis Event Note (ED) - Evaluation Sepsis Screening Result: No Definite Risk - Focused Exam Vital Signs: Vital Signs Temp Pulse Resp BP Pulse Ox 08/12/20 12:41 98 F 77 18 130/65 90 L - Assessment/Plan Plan: Assessment Acuity = acute Site and laterality = 1 cm laceration palmar surface right hand Etiology = secondary to trauma with a knife Manifestations = none Location of injury = Home Lab values = none Plan Suture removal in 10 days, follow-up primary care return to the emergency department follow wound care instruction sheet This note was dictated using [id number] voice recognition software please call with any questions on syntax or grammar.
== END 2020-08-12 13:14 | disposition home or self-care (01) ==
LOC: JP.ED 12:23
DX: S61.411A Laceration without foreign body of right hand, initial encounter (principal); E11.9 Type 2 diabetes mellitus without complications; E66.9 Obesity, unspecified; I25.10 Atherosclerotic heart disease of native coronary artery without angina pectoris; Z68.39 Body mass index [BMI] 39.0-39.9, adult; Z91.041 Radiographic dye allergy status; Z88.8 Allergy status to other drugs, medicaments and biological substances; Z87.891 Personal history of nicotine dependence; Z79.82 Long term (current) use of aspirin; Z79.84 Long term (current) use of oral hypoglycemic drugs; Z79.899 Other long term (current) drug therapy; W26.0XXA Contact with knife, initial encounter
CPT/HCPCS: 12001; 99282; 99282-25

== ENCOUNTER 2020-12-12 00:59 | Emergency (ER) | payer OTHER, MEDICARE ==
--- NOTE | 2020-12-12 01:29 | EDM.PDOC ---
ED HPI GENERAL MEDICAL PROBLEM - General Chief Complaint: Skin Complaint Stated Complaint: LEG PAIN Time Seen by Provider: 12/12/20 01:15 Source of Information: Reports: Patient History Limitations: Reports: No Limitations - History of Present Illness INITIAL COMMENTS - FREE TEXT/NARRATIVE: 75-year-old man who fell and scraped the anterior aspect of his right lower leg 6 days ago, suffering a significant abrasion and contusion which he has been taking care of himself. He is concerned that over the last day or 2 its become more erythematous and he is concerned about infection. No fevers or chills. No significant pain. Onset: Gradual Duration: Day(s): (6 days) Location: Reports: Lower Extremity, Right Associated Symptoms: Denies: Fever/Chills, Malaise, Nausea/Vomiting, Shortness of Breath, Weakness - Related Data Allergies Allergy/AdvReac Type Severity Reaction Status Date / Time Iodinated Contrast Media Allergy Hives Verified 12/12/20 01:13 [Iodinated Contrast Media - Oral and] ragweed pollen Allergy Swollen Verified 12/12/20 01:13 Eyes Home Meds: Home Meds Cholecalciferol (Vitamin D3) [Vitamin D3] 10,000 unit PO DAILY 05/01/17 [History] Cinnamon Bark/Chromium Picolin [Cinnamon Plus Chromium Capsule] 1 tab PO DAILY 05/01/17 [History] Garlic 1,000 mg PO BID 05/01/17 [History] Gemfibrozil 600 mg PO BID 05/01/17 [History] Ketotifen [Ketotifen 0.025% Ophth Soln] 1 drop EYEBOTH BID 05/01/17 [History] Metoprolol Tartrate [Lopressor] 12.5 mg PO BID 05/01/17 [History] Prasterone (DHEA) [Dhea] 50 mg PO DAILY 05/01/17 [History] glipiZIDE [Glucotrol] 10 mg PO BID 05/01/17 [History] Aspirin [Adult Aspirin] 81 mg PO DAILY 04/15/18 [History] Cyanocobalamin (Vitamin B12) [Vitamin B12] 1 tab PO DAILY 04/15/18 [History] Milk Thistle 1 tab PO BID 04/15/18 [History] [place]-3/DHA/Epa/Fish Oil [[place] 3 500 Softgel] 1 cap PO DAILY 04/15/18 [History] metFORMIN HCl [Metformin HCl ER] 1,000 mg PO DAILY 03/26/19 [History] atorvaSTATin [Lipitor] 10 mg PO BEDTIME 08/12/20 [History] Past Medical History HEENT History: Reports: Hard of Hearing, Impaired Vision Other HEENT History: dentures Cardiovascular History: Reports: Aneurysm, CAD Respiratory History: Reports: Sleep Apnea, Other (See Below) Other Respiratory History: cpap and o2 at night. Musculoskeletal History: Reports: Arthritis Psychiatric History: Reports: PTSD Endocrine/Metabolic History: Reports: Diabetes, Type II, Obesity/BMI 30+ Dermatologic History: Reports: Venous Stasis Dermatitis - Infectious Disease History Infectious Disease History: Reports: Chicken Pox - Past Surgical History HEENT Surgical History: Reports: Cataract Surgery Cardiovascular Surgical History: Reports: Coronary Artery Bypass, Coronary Artery Stent Respiratory Surgical History: Reports: None GI Surgical History: Reports: Hernia, Abdominal Neurological Surgical History: Reports: Other (See Below) Other Neurological Surgeries/Procedures: "put something to harden a disc in my back" Musculoskeletal Surgical History: Reports: None Social & Family History - Family History Family Medical History: No Pertinent Family History Neurological: Reports: Alzheimers Disease - Caffeine Use Caffeine Use: Reports: None ED ROS GENERAL - Review of Systems Review Of Systems: See Below Constitutional: Denies: Fever, Chills Respiratory: Denies: Shortness of Breath Cardiovascular: Denies: Chest Pain GI/Abdominal: Denies: Nausea, Vomiting Skin: Reports: Erythema, Other (Dried healing abrasion on the right anterior lower leg) Neurological: Denies: Paresthesia ED EXAM, SKIN/RASH Exam: See Below Exam Limited By: No Limitations General Appearance: Alert, No Apparent Distress Head: Atraumatic Respiratory/Chest: No Respiratory Distress Extremities: Other (Both lower extremities have 1+ pitting edema, the right lower extremity has a linear abrasion which is dry and healing with surrounding erythema) Neurological: Alert, Oriented Psychiatric: Normal Affect, Normal Mood Skin: Warm, Dry, Other (The healing abrasion on the anterior right lower leg has surrounding erythema but no significant drainage or warmth) Course - Vital Signs Last Recorded V/S: Last Vital Signs Temp 98.2 F 12/12/20 01:18 Pulse 93 12/12/20 01:18 Resp 16 12/12/20 01:18 BP 144/76 H 12/12/20 01:18 Pulse Ox 96 05/18/21 01:18 - Re-Assessments/Exams Free Text/Narrative Re-Assessment/Exam: 12/12/20 01:28 This wound actually looks like it is healing fairly well, how whether he has significant risk factors for cellulitis so will be covered with cephalexin 500 3 times daily for 20 doses. Continue with keeping the wound clean while healing, elevate when able and increase activity as tolerated. Departure - Departure Time of Disposition: 01:30 Disposition: Home, Self-Care 01 Clinical Impression: Cellulitis of right leg - Discharge Information Instructions: Cellulitis, Adult Referrals: PCP,None [Primary Care Provider] - Forms: ED Department Discharge Care Plan Goals: Continue caring for the wound, keeping it clean and elevate leg when able. Activity as tolerated, take antibiotic until gone and recheck if worsening despite treatment. Sepsis Event Note (ED) - Evaluation Sepsis Screening Result: No Definite Risk - Focused Exam Vital Signs: Vital Signs Temp Pulse Resp BP Pulse Ox 12/12/20 01:18 98.2 F 93 16 144/76 H 96
[2020-12-12 01:56] VITALS: BP 144/76; PULSE 93
== END 2020-12-12 01:36 | disposition home or self-care (01) ==
LOC: JP.ED 00:59
DX: L03.115 Cellulitis of right lower limb (principal); I25.10 Atherosclerotic heart disease of native coronary artery without angina pectoris; E11.9 Type 2 diabetes mellitus without complications; E66.9 Obesity, unspecified; Z68.41 Body mass index [BMI] 40.0-44.9, adult; Z91.041 Radiographic dye allergy status; Z91.048 Other nonmedicinal substance allergy status; Z79.84 Long term (current) use of oral hypoglycemic drugs; Z79.899 Other long term (current) drug therapy; Z79.82 Long term (current) use of aspirin
CPT/HCPCS: 99282; 99283

== ENCOUNTER 2022-09-10 14:32 | Emergency (ER) | payer MEDICARE, OTHER ==
[2022-09-10 16:02] VITALS: BP 127/65; PULSE 91
== END 2022-09-10 17:20 | disposition home or self-care (01) ==
LOC: JP.ED 14:32
DX: K59.04 Chronic idiopathic constipation (principal); I25.10 Atherosclerotic heart disease of native coronary artery without angina pectoris; M19.90 Unspecified osteoarthritis, unspecified site; E11.9 Type 2 diabetes mellitus without complications; E66.9 Obesity, unspecified; Z68.41 Body mass index [BMI] 40.0-44.9, adult; Z91.041 Radiographic dye allergy status; Z91.048 Other nonmedicinal substance allergy status; Z79.82 Long term (current) use of aspirin; Z79.84 Long term (current) use of oral hypoglycemic drugs; Z79.899 Other long term (current) drug therapy
CPT/HCPCS: 99283

== ENCOUNTER 2022-10-03 11:43 | Emergency (ER) | payer OTHER, MEDICARE ==
[2022-10-03] MEDS ORDERED: Lidocaine 1% 5 ML VIAL INJECT ONE (11:44)
[2022-10-03] MEDS ORDERED: Bacitracin Oint 1 GM U/D Packet TOP ONE (11:44)
[2022-10-03 12:13] VITALS: BP 134/66; PULSE 70
== END 2022-10-03 13:08 | disposition left against medical advice (07) ==
LOC: JP.ED 11:43
DX: Z53.21 Procedure and treatment not carried out due to patient leaving prior to being seen by health care provider (principal)

== ENCOUNTER 2022-10-13 07:48 | Emergency (ER) | payer OTHER, MEDICARE ==
[2022-10-13] MEDS ORDERED: Sodium Chloride 0.9% 10 ML Syringe FLUSH PRN (07:58)
[2022-10-13] MEDS ORDERED: Sodium Chloride 0.9% 500 ML IV ONE (08:29)
[2022-10-13 08:33] LABS: ESTIMATED GFR 91 mL/min (>60)
[2022-10-13 08:52] LABS: CORONAVIRUS COVID-19 NAA NEGATIVE (NEGATIVE)
[2022-10-13 09:18] VITALS: BP 124/60; PULSE 103
== END 2022-10-13 10:32 | disposition home or self-care (01) ==
LOC: JP.ED 07:48
DX: A08.4 Viral intestinal infection, unspecified (principal); E86.0 Dehydration; R11.2 Nausea with vomiting, unspecified; J44.9 Chronic obstructive pulmonary disease, unspecified; I25.10 Atherosclerotic heart disease of native coronary artery without angina pectoris; E11.9 Type 2 diabetes mellitus without complications; E66.9 Obesity, unspecified; Z91.041 Radiographic dye allergy status; Z91.048 Other nonmedicinal substance allergy status; Z79.82 Long term (current) use of aspirin; Z79.899 Other long term (current) drug therapy; Z95.1 Presence of aortocoronary bypass graft; Z20.822 Contact with and (suspected) exposure to COVID-19; Z68.37 Body mass index [BMI] 37.0-37.9, adult
CPT/HCPCS: 0241U; 36415; 74022; 80053; 81001; 83605; 83690; 85025; 96360; 99284; J7040

== ENCOUNTER 2022-12-05 10:54 | Emergency (ER) | payer OTHER, MEDICARE ==
[2022-12-05 11:03] VITALS: BP 125/63; PULSE 78
[2022-12-05] MEDS ORDERED: Bacitracin Oint 1 GM U/D Packet TOP ONE (11:22)
== END 2022-12-05 12:30 | disposition home or self-care (01) ==
LOC: JP.ED 10:54
DX: S01.01XA Laceration without foreign body of scalp, initial encounter (principal); E11.9 Type 2 diabetes mellitus without complications; I25.10 Atherosclerotic heart disease of native coronary artery without angina pectoris; J44.9 Chronic obstructive pulmonary disease, unspecified; E66.9 Obesity, unspecified; Z91.041 Radiographic dye allergy status; Z79.82 Long term (current) use of aspirin; Z79.899 Other long term (current) drug therapy; Z68.34 Body mass index [BMI] 34.0-34.9, adult; W01.0XXA Fall on same level from slipping, tripping and stumbling without subsequent striking against object, initial encounter
CPT/HCPCS: 12002; 70450; 70450-26; 99284